=== PATIENT | female | born 1970 | race Caucasian/White ===

== ENCOUNTER → 2019-11-18 | Outpatient (CLI) | payer OTHER | END | disposition home or self-care (01) | LOC: MRI 08:11 | DX: H57.89 Other specified disorders of eye and adnexa (principal) | CPT/HCPCS: 70542 ==

== ENCOUNTER 2020-12-24 13:51 | Outpatient (CLI) | payer OTHER | END 2020-12-24 13:53 | disposition home or self-care (01) | LOC: PPH VACUNA 13:51 | PROVIDERS: ATTEND Emergency Medicine Pediatric Emergency Medicine | DX: Z23 Encounter for immunization (principal) ==

== ENCOUNTER 2021-02-09 13:28 | Outpatient (CLI) | payer OTHER | END 2021-02-09 13:30 | disposition home or self-care (01) | LOC: TOM 13:28 | PROVIDERS: ATTEND Radiology Diagnostic Radiology | DX: G44.89 Other headache syndrome (principal); S09.90XA Unspecified injury of head, initial encounter ==

== ENCOUNTER 2021-02-15 07:54 | Outpatient (CLI) | payer OTHER | END 2021-02-15 08:15 | disposition home or self-care (01) | LOC: MRI 07:54 | PROVIDERS: ATTEND Ophthalmology | DX: G93.89 Other specified disorders of brain (principal) | CPT/HCPCS: 70553 ==

== ENCOUNTER 2021-06-23 08:01 | Outpatient (CLI) | payer OTHER | END 2021-06-23 08:20 | disposition home or self-care (01) | LOC: MRI 08:01 | PROVIDERS: ATTEND Ophthalmology | DX: H05.811 Cyst of right orbit (principal) | CPT/HCPCS: 70543 ==

== ENCOUNTER 2023-03-14 08:47 | Outpatient (CLI) | payer OTHER | END 2023-03-14 09:10 | disposition home or self-care (01) | LOC: MRI 08:47 | DX: H05.811 Cyst of right orbit (principal); D33.2 Benign neoplasm of brain, unspecified | CPT/HCPCS: 70553 ==

== ENCOUNTER 2024-02-26 11:57 | Outpatient (CLI) | payer OTHER | END 2024-02-26 12:44 | disposition home or self-care (01) | LOC: TOM 11:57 | PROVIDERS: ATTEND Radiology Diagnostic Radiology | DX: M54.16 Radiculopathy, lumbar region (principal) ==

== ENCOUNTER 2024-03-01 07:54 | Outpatient (CLI) | payer OTHER | END 2024-03-01 08:15 | disposition home or self-care (01) | LOC: TOM 07:54 | PROVIDERS: ATTEND Radiology Diagnostic Radiology | DX: R07.9 Chest pain, unspecified (principal) ==